=== PATIENT | male | born 1945 ===

== ENCOUNTER 2022-02-11 07:37 | Inpatient (IN) | payer MEDICARE ==
[~2022-02-11] VITALS: Wt 86.0 kg
[2022-02-11] MEDS ORDERED: ALBU2.5V5 INH (10:37)
[2022-02-11] MEDS ORDERED: ALBU90OI INH (10:38)
[2022-02-11 12:02] LABS: Source, Urine Foley catheter
[2022-02-11 12:05] LABS: Appearance, Urine Clear (Clear); Bilirubin, Urine Neg (Neg); Blood, Urine 2+ (Neg); Color, Urine Yellow (P-Yellow); Glucose Qualitative, Urine Neg (Neg); Ketones, Urine Neg (Neg); Leukocyte Esterase, Urine 3+ (Neg); Nitrite, Urine Neg (Neg); Protein, Urine 2+ (Neg); Specific Gravity, Urine 1.015 (1.003-1.022); Urobilinogen, Urine NORM (Normal)
[2022-02-11 12:16] LABS: BASOPHILS ABSOLUTE AUTO 0.02 K/mm3 (0.00-0.23); BASOPHILS PERCENT AUTO 0 % (0-2); EOSINOPHILS PERCENT AUTO 0 % (0-6); Hematocrit 34.2 % (37.0-53.0); Hemoglobin 11.7 g/dL (13.5-17.5); IMMATURE GRAN ABSOLUTE AUTO 0.15 K/mm3 (0.00-0.10); IMMATURE GRAN PERCENT AUTO 1 % (0-1); LYMPHOCYTES ABSOLUTE AUTO 0.74 K/mm3 (0.84-5.20); LYMPHOCYTES PERCENT AUTO 4 % (21-46); MONOCYTES ABSOLUTE AUTO 0.71 K/mm3 (0.16-1.47); MONOCYTES PERCENT AUTO 3 % (4-13); Mean Corpuscular HGB 27.9 pg (26.0-34.0); Mean Corpuscular HGB Conc 34.2 g/dL (31.5-36.5); Mean Corpuscular Volume 82 fL (80-100); Mean Platelet Volume 9.9 fL (9.1-12.4); NEUTROPHILS PERCENT AUTO 92 % (41-73); Platelet Count 237 K/mm3 (150-400); RDW Coefficient Variation 14.9 % (11.7-14.2); RDW Standard Deviation 44.1 fL (35.1-46.3); Red Blood Cell Count 4.19 M/mm3 (4.30-5.90); White Blood Cell Count 20.62 K/mm3 (4.00-11.30)
[2022-02-11 12:18] LABS: Bacteria Few /hpf; Squamous Epithelial Cells Not Seen /hpf (Few); White Blood Cells, Urine 25-50 /hpf (0-5)
[2022-02-11] MEDS ORDERED: ATOR10 PO (12:21)
[2022-02-11] MEDS ORDERED: CHLO25B PO (12:21)
[2022-02-11] MEDS ORDERED: FLUO10 PO (12:21)
[2022-02-11] MEDS ORDERED: TRELEGY ELLIPT1 EACH INH (12:22)
[2022-02-11 12:33] LABS: Bun/Creatinine Ratio 37.6 (12.0-20.0); Calcium, Blood 8.6 mg/dL (8.5-10.1); Creatinine, Blood 1.49 mg/dL (0.60-1.20); Potassium, Blood 4.1 mmol/L (3.5-5.5)
[2022-02-11 13:03] LABS: Anti-Xa UFH, PHA Monitoring <0.10 IU/mL; International Normalized Ratio 1.06; Prothrombin Time Results 11.1 Sec (9.7-11.5)
--- NOTE | 2022-02-11 18:14 | NUR ---
REPORT RECIEVED FROM DHARMESH JACOBS FROM [facility] AT 0730. PT ARRIVED TO PCU AT 0910 VIA GURNEY. PT ON 2L NC UPON ARRIVAL. VSS. BANDAGE IN PLACE ON LEFT FOREARM, SKIN TEARS REVEALED, PHOTOS TAKEN AND IN CHART. PT HAS SECNOD TOE OF RIGHT FOOT WOUND, PICTURE IN CHART. BASE OF LUNGS COARSE.
--- NOTE | 2022-02-11 18:18 | NUR ---
SHIFT SUMMARY PT A/O X4 AND COOPERATIVE OF CARE. VSS SINCE ARRIVAL TO UNIT. TROPONIN LEVELS ELEVATED, SEE LAB RESULTS. NO REPORT OF CHEST PAIN/PRESSURE SINCE ARRIVAL TO UNIT. NO EPORT OF SOB SINCE ARRIVAL TO UNIT. PT SEEN BY AND CARDIOLOGY CONSULTED. DENTAL PRACTITIONER SEEN PT, PLANS FOR ANGIO IN THE AM, PT NPO AFTER MIDNIGHT. SARABIA IN PLACE UPON ARRIVAL, URINE SAMPLE COLLECTED AND SENT TO LAB. AND DAUGHTER AT BEDSIDE AT END OF SHIFT, AND DAUGHTER UPDATED.
[2022-02-12 03:46] LABS: BASOPHILS ABSOLUTE AUTO 0.01 K/mm3 (0.00-0.23); BASOPHILS PERCENT AUTO 0 % (0-2); EOSINOPHILS PERCENT AUTO 0 % (0-6); Hematocrit 34.2 % (37.0-53.0); Hemoglobin 11.2 g/dL (13.5-17.5); IMMATURE GRAN ABSOLUTE AUTO 0.07 K/mm3 (0.00-0.10); IMMATURE GRAN PERCENT AUTO 0 % (0-1); LYMPHOCYTES ABSOLUTE AUTO 1.21 K/mm3 (0.84-5.20); LYMPHOCYTES PERCENT AUTO 7 % (21-46); MONOCYTES ABSOLUTE AUTO 1.14 K/mm3 (0.16-1.47); MONOCYTES PERCENT AUTO 6 % (4-13); Mean Corpuscular HGB 27.1 pg (26.0-34.0); Mean Corpuscular HGB Conc 32.7 g/dL (31.5-36.5); Mean Corpuscular Volume 83 fL (80-100); Mean Platelet Volume 9.9 fL (9.1-12.4); NEUTROPHILS ABSOLUTE AUTO 15.79 K/mm3 (1.96-9.15); NEUTROPHILS PERCENT AUTO 87 % (41-73); Platelet Count 252 K/mm3 (150-400); RDW Coefficient Variation 14.7 % (11.7-14.2); RDW Standard Deviation 44.6 fL (35.1-46.3); Red Blood Cell Count 4.14 M/mm3 (4.30-5.90); White Blood Cell Count 18.22 K/mm3 (4.00-11.30)
[2022-02-12 04:04] LABS: Calcium, Blood 8.5 mg/dL (8.5-10.1); Creatinine, Blood 1.49 mg/dL (0.60-1.20); Potassium, Blood 4.3 mmol/L (3.5-5.5)
--- NOTE | 2022-02-12 06:53 | NUR ---
SUMMARY NO ACUTE CHANGES THROUGH THE NIGHT, PT WAS ABLE TO SLEEP WITH NO PROBLEMS, EKG X2 COMPLETED PER ORDERS, PT CONTINUES TO DENY CP/PRESSURE, SPO2 >95% ON 2 L VIA NC, PT HAS BEEN NPO SINCE MIDNIGHT, CALL LIGHT IN REACH
--- NOTE | 2022-02-12 09:44 | NUR ---
PT RETURNED FROM [facility] AT 0934. TR BAND IN PLACE WITH 13 CC OF AIR. VS; BP 113/53 (MAP 71), HR 83, O2 91 % RA, TEMP 97.3 PT PLACED ON 2 L NC, 02 SATS 95%. PT AWAKE AND ANSWERING QUESTIONS APPROPRIATELY. HEPARIN CURRENTLY OFF UNTIL TR BAND RECOVERED, PHARMACY NOTIFIED.
--- NOTE | 2022-02-12 15:36 | NUR ---
PT HAD ANGIOGRAM THIS AM, RETURNED AT 0930. HEPARIN STOPPED WHILE IN ANGIO. PT TO TRANSFER TO [facility] FOR EVALUATION AND RECOMMENDED BYPASS SURGERY. VSS UPON RETURN FROM [facility], SEE CHART. TR BAND AND ARM BOARD IN PLACE. NO SWELLING, TENDERNESS, HEMATOMA, DISCOLORATION NOTED. PT DENIES PAIN, PARESTHESIA, OR WEAKNESS. PULSE PRESENT AND NO PALLOR NOTED. PT REPORTS BEING "TIRED" UPON RETURN FROM [facility]. PT ATE BREAKFAST AND LUNCH. PT HAS WET, PRODUCTIVE COUGH WITH SMALL AMOUNTS OF CLEAR/STREAKED SPUTUM. PT STATES THIS IS NORMAL. PT DENIES CHEST PAIN OR PRESSURE WELL DENIES SOB. PT RESTED THROUGHOUT SHIFT. EMS ARRIVED AROUND 1345 TO TRANSFER PT. REPORT GIVEN. THIS RN CALLED FACILITY TO GIVE REPORT, REPORT GIVEN TO TONI. PT BELONGINGS SENT WITH PT. FAMILY UPDATED AND NOTIFIED OF TRANSFER AND PLAN. FAMILY ARRIVED JUST PRIOR TO TRANSFER. PT LEFT VIA GURNEY. NS INFUSING PER EMAR AND 2 L O2 NC
== END 2022-02-12 14:00 | disposition short-term general hospital (02) | DRG 280 ==
LOC: PCU 07:37
PROVIDERS: ADMIT Internal Medicine
PROC: 4A023N7 Measurement of Cardiac Sampling and Pressure, Left Heart, Percutaneous Approach (ICD-10-PCS; principal; 2022-02-12)
PROC: B2111ZZ Fluoroscopy of Multiple Coronary Arteries using Low Osmolar Contrast (ICD-10-PCS; 2022-02-12)
PROC: B2151ZZ Fluoroscopy of Left Heart using Low Osmolar Contrast (ICD-10-PCS; 2022-02-12)
DX: I21.4 Non-ST elevation (NSTEMI) myocardial infarction (principal); J18.9 Pneumonia, unspecified organism; I13.0 Hypertensive heart and chronic kidney disease with heart failure and stage 1 through stage 4 chronic kidney disease, or unspecified chronic kidney disease; J44.0 Chronic obstructive pulmonary disease with (acute) lower respiratory infection; R33.9 Retention of urine, unspecified; E87.5 Hyperkalemia; I50.9 Heart failure, unspecified; I25.10 Atherosclerotic heart disease of native coronary artery without angina pectoris; N18.30 Chronic kidney disease, stage 3 unspecified; I73.9 Peripheral vascular disease, unspecified; Z87.01 Personal history of pneumonia (recurrent); Z79.51 Long term (current) use of inhaled steroids; Z79.82 Long term (current) use of aspirin; Z79.899 Other long term (current) drug therapy
CPT/HCPCS: 36415; 76937; 80048; 81001; 84145; 84484; 85025; 85520; 85610; 85730; 93005; 93010; 93454; 94640; 94664; 94760; 94762; 99152; 99153; A9270; C1769; C1887; C1894; C8929; J0696; J1644; J2250; J3010; J7030; Q9957; Q9967